=== PATIENT | female | born 1995 | race Caucasian/White ===

== ENCOUNTER 2016-11-25 13:45 | Emergency (ER) | payer OTHER ==
--- NOTE | 2016-12-05 16:41 | ER ---
ADMIT: 11/25/2016 RM/LOC: ER [facility] MR#: [id number] [id number] TAYLOR SULLIVAN [address] [place] [address] Emergency Room Report SEX: F AGE: 21 : 1995 DATE: 11/25/2016 ADDENDUM: CHIEF COMPLAINT: Rash. HISTORY OF PRESENT ILLNESS: This is a 21-year-old female, who had this rash for 2 weeks, now it is progressively getting worse. She said it started in her inner thigh and axillary region initially. She thought it was just heat rash because she was trying to keep herself cool. She tried multiple items to make it better. She was using baby powder to keep it dry, when that was not helping, she tried Benadryl cream to help with the itching. Permethrin for possible scabies, which actually she said that made it worse, calamine lotion and few other [id number] creams that she said is progressively getting worse instead of better. I am going to send her home with prednisone for 5 days, also nystatin powder due to being her sweating areas. Her skin is very excoriated, does seem to be also contact dermatitis. IMPRESSION: 1. Contact dermatitis. 2. Tinea corporis. DISPOSITION: Again sending her home on prednisone and nystatin powder. GIOVANNA Brooks / Pino Vazquez MD / chagol JOB #: [id number] CC: Howard Wilson MD, Attending Physician Melony Vincent MD, Family Physician
== END 2016-11-25 15:00 | disposition home or self-care (01) ==
LOC: ER 13:45
DX: B35.4 Tinea corporis (principal); L25.9 Unspecified contact dermatitis, unspecified cause